=== PATIENT | female | born 1960 | race Two or more races ===

== ENCOUNTER 2024-03-01 19:43 | Emergency (ER) | payer SELFPAY ==
[~2024-03-01] VITALS: Ht 162.6 cm; Wt 119.0 kg
[2024-03-01] MEDS: MORPHINE SULFATE 4 MG/ML SYR/VIAL IV ONE (20:00)
[2024-03-01] MEDS: diphenhdrAMINE HCL 50 MG/1 ML VL IV ONE (20:00)
[2024-03-01] MEDS: FAMOTIDINE (10MG/ML) 2ML VL IV ONE (20:00)
[2024-03-01] MEDS: METOCLOPRAMIDE HCL 5MG/ml INJ 2ml VIAL IV ONE (20:00)
[2024-03-01] MEDS: ONDANSETRON HCL 4 MG/2 ML VIAL IV ONE (20:00)
[2024-03-01 20:33] LABS: Basophils # (auto) 0.1 10 ^3/uL (0-0.2); Basophils % (auto) 0.7 % (0.0-2.0); Eosinophils # (auto) 0 10 ^3/uL (0-0.8); Eosinophils % (auto) 0.2 % (0.0-7.0); Hematocrit 45.4 % (36.0-46.0); Hemoglobin 14.9 g/dL (12.2-16.2); Lymphocytes # (auto) 0.7 10 ^3/uL (0.4-5.4); Lymphocytes % (auto) 4.2 % (10.0-50.0); Mean Corpuscular Hemoglobin 30.4 pg (28.0-32.0); Mean Corpuscular Hgb Conc. 32.8 g/dL (32.0-36.0); Mean Corpuscular Volume 92.5 fL (80.0-100.0); Monocytes # (auto) 0.3 10 ^3/uL (0-1.3); Monocytes % (auto) 1.9 % (0.0-12.0); Neutrophils # (auto) 14.8 10 ^3/uL (1.6-8.6); Nucleated Red Blood Cells % 0.1 %; Platelet Count (auto) 360 10^3/uL (140-450); Red Cell Distribution Width 13.5 % (11.8-14.3); White Blood Cell 15.9 10^3/uL (4.4-10.8)
[2024-03-01 21:06] LABS: Alanine Aminotransferase 25 U/L (7-40); Albumin 4.9 g/dL (3.2-4.8); Alkaline Phosphatase 108 U/L (46-116); Anion Gap 14 (5-15); Aspartate Aminotransferase 14 U/L (13-40); BUN/Creatinine Ratio 8.1 (10.0-20.0); Bilirubin, Total 1.2 mg/dL (0.2-1.0); Blood Urea Nitrogen 8 mg/dL (9-23); Calcium 10.4 mg/dL (8.7-10.4); Carbon Dioxide 21 mmol/L (20-31); Chloride 107 mmol/L (98-107); Glucose 207 mg/dL (74-106); Potassium 3.7 mmol/L (3.5-5.1); Sodium 142 mmol/L (136-145); Total Protein 7.7 g/dL (5.7-8.2)
[2024-03-01 21:27] LABS: Lipase 35 U/L (12-53)
[2024-03-01] MEDS ORDERED: FAMO20TA10 PO (22:31)
[2024-03-01] MEDS ORDERED: ZOFR4T PO (22:31)
[2024-03-01] MEDS ORDERED: LOPE1TAB24 PO (22:31)
[2024-03-01 22:35] VITALS: BP 162/90; PULSE 87; RESP 16; TEMP 98.2; O2SAT 99
[2024-03-01] MEDS: MAALOX PLUS or MAALOX 30 ML PO ONE (22:57)
[2024-03-01] MEDS: LIDOCAINE VISCOUS 2% 15ML UD PO ONE (22:57)
[2024-03-01] MEDS: ACETAMINOPHEN 325 MG TAB PO ONE (22:58)
[2024-03-01] MEDS: ONDANSETRON ODT 4 MG TAB PO ONE (23:00)
== END 2024-03-01 23:08 | disposition home or self-care (01) ==
LOC: ER 19:43
DX: A05.9 Bacterial foodborne intoxication, unspecified (principal); I10 Essential (primary) hypertension; E11.9 Type 2 diabetes mellitus without complications
CPT/HCPCS: 36415; 80053; 83690; 85025; 93005; 99284; Q0162; J3490